=== PATIENT | female | born 1965 | race African-American/Black ===

== ENCOUNTER 2019-12-26 18:23 | Emergency (ER) | payer OTHER, SELFPAY ==
--- NOTE | ~2019-12-26 | XR_ITS ---
EXAMINATION: XR chest 2V EXAM DATE: 12/26/2019 19:38 INDICATION: Cough, headache for one week. Midsternal chest pain for 2 days. History high blood pressu re. TECHNIQUE: Frontal and lateral projections of the chest obtained and reviewed. There is no prior farrah dy for comparison. FINDINGS: The lungs are clear. There are no pleural effusions. The cardiomediastinal silhouette is within normal limits. There is no pneumothorax suspected. The bones and soft tissues are unremarkab le. IMPRESSION: No acute cardiopulmonary findings. Reviewed, dictated and finalized at location A.
[2019-12-26 18:28] VITALS: BP 151/100; PULSE 100; RESP 18; TEMP 36.8; O2SAT 100
[2019-12-26 18:34] VITALS: O2SAT 100
--- NOTE | 2019-12-26 18:59 | ECG_ITS ---
Measurements Intervals [place] Rate: 81 P: 32 OR: 155 QRS: 17 QRSD: 106 T: 42 QT: 392 QTc: 456 Interpretive Statements SINUS RHYTHM BORDERLINE T WAVE ABNORMALITY- ANTERIOR LEADS BASELINE ARTIFACT- I, III, AVL, AVF BORDERLINE ECG Electronically Signed On 12-27-2019 7:13:36 CDT by Kasi Pemberton D.O.
--- NOTE | 2019-12-26 19:00 | ED.URI ---
HPI - URI/Sore Throat General Chief Complaint: Upper Respiratory Infection Stated Complaint: DAVIS [id number] Time Seen by Provider: 12/26/19 18:41 Source: patient History of Present Illness HPI Narrative: Pt c/o cough, nasal congestion, fever x 2 days. Pt states her cough is productive, yellow green sputum. Pt also states that her chest hurts only when she coughs, been coughing alot . Denies sob, abd pain, n/v/d. Related Data Allergies Allergy/AdvReac Type Severity Reaction Status Date / Time No Known Allergies Allergy Verified 12/26/19 18:35 Review of Systems Review of Systems: All systems reviewed & are unremarkable except as noted in HPI and below Constitutional: Constitutional: Denies body ache(s), Denies chills, Denies excessive sweating, Denies fatigue, Denies headache(s), Denies lethargy, Denies malaise, Denies weakness and Denies weight loss Eyes: Eyes: Denies blurry vision, Denies change in vision and Denies loss of vision ENT: Denies dizziness, Denies ear discharge, Denies headache(s), Denies lip swelling, Denies epistaxis, Denies neck pain, Denies throat swelling and Denies tongue swelling Cardiovascular: Cardiovascular: Denies chest pain, Denies chest pain at rest, Denies chest pain with activity, Denies diaphoresis, Denies rapid heart rate, Denies edema, Denies irregular heart rhythm, Denies lightheadedness, Denies palpitations, Denies dyspnea and Denies dyspnea on exertion Respiratory: Respiratory: Denies chest congestion, Denies hemoptysis, Denies dyspnea and Denies dyspnea on exertion Gastrointestinal: Gastrointestinal: Denies abdominal pain, Denies melena, Denies hematochezia, Denies diarrhea, Denies nausea, Denies vomiting and Denies hematemesis Musculoskeletal: Musculoskeletal: Denies abnormal gait, Denies deformity, Denies joint swelling, Denies limited range of motion, Denies neck pain and Denies numbness Neurologic: Denies Abnormal speech present, Denies abnormal gait, Denies confusion, Denies dizziness, Denies headache(s), Denies focal weakness, Denies loss of vision, Denies numbness, Denies Other visual disturbances, Denies Sensory deficit (Neuro) and Denies weakness Psychiatric: Psychiatric: Denies confusion, Denies depression, Denies auditory hallucinations, Denies homicidal ideation and Denies suicidal ideation Endocrine: Endocrine: Denies cold intolerance, Denies excessive sweating, Denies fatigue, Denies heat intolerance and Denies palpitations Hematologic/Lymphatic: Hematologic/Lymphatic: Denies easy bleeding and Denies easy bruising Allergic/Immunologic: Allergic/Immunologic: Denies lip swelling, Denies throat swelling and Denies tongue swelling [facility] Social History Social History Gender identity (if verbalized by the patient): Female Exam Const: General: cooperative, healthy appearing, comfortable, no acute distress, well developed, alert and awake; No confusion Orientation/consciousness: oriented to person, oriented to place, oriented to time, patient oriented x3 and No confusion Limitations: no limitations HENMT: Head: normal to inspection, normocephalic and atraumatic Ears: hearing grossly normal bilaterally, TM normal on the right and TM normal on the left General nose exam: Normal external nose present, Normal nares present and No nasal discharge present Face and sinus: normal facial exam Mouth: Yes Normal oral and palatal mucosa present, Yes lip normal, Yes tongue normal and Yes oropharynx normal Throat: posterior oropharynx normal, tonsils normal and uvula midline Eyes: General: appearance normal, both eyes and all related structures Pupils: Equal, round and reactive pupils present EOM: EOMs intact bilaterally Neck: Neck: normal visual inspection, full ROM, no lymphadenopathy and no meningeal signs Chest: Chest palpation & inspection: normal inspection of the chest Resp: Effort & Inspection: normal respiratory effort, able to speak in complete sentences, no respiratory distress and n
[2019-12-26 19:15] LABS: Hematocrit 41.2 % (37.0-47.0); Hemoglobin 14.1 g/dL (12.0-15.0); Mean Corpuscular HGB Conc 34.2 g/dl (32-36); Mean Corpuscular Hemoglobin 28.8 pg (26-34); Mean Corpuscular Volume 84.3 fl (80-100); Platelet Count Result 314 k/mm3 (150-375); Red Blood Count 4.89 M/mm3 (4.2-5.4); Red Cell Distribution Width 13.2 % (11.5-14.5); White Blood Count 14.1 K/mm3 (4.5-10.0)
[2019-12-26 19:28] LABS: Blood Urea Nitrogen 7 mg/dL (7-17); Calcium 10.1 mg/dL (8.4-10.2); Carbon Dioxide 29 mmol/L (22-30); Chloride 99 mmol/L (98-107); Estimated CRCL calculation 88 ml/min; Estimated Glomerular Filt Rate > 60; Glucose 122 mg/dL (65-105); Potassium 3.7 mmol/L (3.4-5.0); Sodium 136 mmol/L (137-145)
[2019-12-26 19:29] LABS: Eosinophils Absolute Manual 0.14 K/mm3 (0.02-0.5); Eosinophils Percent Manual 1 % (0-4); Lymphocytes Absolute Manual 5.21 K/mm3 (1.1-4.5); Lymphocytes Percent Manual 37 % (18-44); Monocytes Absolute Manual 0.56 K/mm3 (0.1-0.90); Monocytes Percent Manual 4 % (3-9); Neutrophils Percent Manual 58 % (46-73); Ovalocytes 1+ (NORMAL); Platelet Estimate Adequate (Adequate); Total Cells Counted 100
[2019-12-26 19:30] LABS: Atypical Lymphocytes Present
[2019-12-26 19:40] LABS: Troponin I < 0.012 ng/mL (0.000-0.034)
[2019-12-26 20:20] VITALS: BP 138/92; PULSE 89; RESP 18; O2SAT 100
== END 2019-12-26 20:24 | disposition home or self-care (01) ==
PROVIDERS: Emergency Provider Emergency Medicine; PCP Internal Medicine Infectious Disease
DX: J20.9 Acute bronchitis, unspecified (principal); F17.210 Nicotine dependence, cigarettes, uncomplicated; R94.31 Abnormal electrocardiogram [ECG] [EKG]
CPT/HCPCS: 36415; 71046; 80048; 84484; 85025; 93005; 99284

== ENCOUNTER 2020-05-27 16:42 | Emergency (ER) | payer OTHER, SELFPAY ==
[2020-05-27 17:00] VITALS: BP 167/94; PULSE 98; RESP 16; TEMP 36; O2SAT 98
[2020-05-27 17:16] LABS: Basophils Percent Auto 0.3 % (0.2-1.2); Eosinophils Absolute Auto 0.1 K/mm3 (0-0.3); Eosinophils Percent Auto 1.6 % (0-4.4); Hematocrit 38.9 % (37.0-47.0); Hemoglobin 13.3 g/dL (12.0-15.0); Immature Granulocyte Absolute 0.03 K/mm3 (0.00-0.031); Immature Granulocyte Percent A 0.3 % (0-0.5); Lymphocytes Absolute Auto 3.65 K/mm3 (0.9-3.2); Mean Corpuscular HGB Conc 34.2 g/dl (32-36); Mean Corpuscular Volume 84.9 fl (80-100); Mean Platelet Volume 9.4 fl (7.4-10.4); Monocytes Absolute Auto 0.8 K/mm3 (0.1-0.6); Monocytes Percent Auto 8.9 % (2.6-8.5); Neutrophils Absolute Auto 4.3 K/mm3 (1.3-6.7); Neutrophils Percent Auto 47.9 % (45.5-73.1); Platelet Count Result 338 k/mm3 (150-375); Red Blood Count 4.58 M/mm3 (4.2-5.4); White Blood Count 8.9 K/mm3 (4.5-10.0)
[2020-05-27 17:24] LABS: Alanine Aminotransferase 27 U/L (4-35); Albumin Level 4.7 g/dL (3.5-5.1); Alkaline Phosphatase 74 U/L (38-126); Anion Gap 12 mmol/L (8-16); Aspartate Amino Transferase 27 U/L (14-36); Bilirubin,Total < 0.1 mg/dL (0.2-1.3); Blood Urea Nitrogen 9 mg/dL (7-17); Calcium 9.7 mg/dL (8.4-10.2); Carbon Dioxide 30 mmol/L (22-30); Chloride 101 mmol/L (98-107); Estimated CRCL calculation 77 ml/min; Estimated Glomerular Filt Rate > 60; Glucose 153 mg/dL (65-105); Lipase 496 U/L (23-300); Potassium 3.1 mmol/L (3.4-5.0); Sodium 143 mmol/L (137-145)
[2020-05-27 17:37] LABS: Add Urine Microscopic? YES; Appearance Urine Clear (Clear); Bacteria Urine Trace /hpf; Bilirubin Urine Negative (Negative); Color Urine Amber (Yellow); Glucose Urine UA Negative (Negative); Ketones Urine Trace mg/dL (Negative); Leukocyte Esterase Ur 2+ LEU/UL (Negative); Mucus Urine Heavy /lpf; Nitrate Urine Negative (Negative); Protein Urine 1+ mg/dL (Negative); RBC Urine 21-50 /hpf (0-2); Squamous Epithelial Cell Urine Few /hpf (Few); Uric Acid Crystals Urine Present /hpf
[2020-05-27 17:41] LABS: Blood Urine Negative (Negative)
--- NOTE | 2020-05-27 19:19 | PC.NURSE ---
Pt not in lobby when called. Left without being seen.
== END 2020-05-27 19:19 | disposition left against medical advice (07) ==
PROVIDERS: Emergency Provider Emergency Medicine; PCP Internal Medicine Infectious Disease
DX: R10.9 Unspecified abdominal pain (principal)
CPT/HCPCS: 36415; 80053; 81001; 81025; 83690; 85025; 87086; 99199

== ENCOUNTER 2022-11-15 08:52 | Outpatient (CLI) | payer MEDICARE, MEDICAID, SELFPAY ==
--- NOTE | 2022-11-15 09:23 | ECG_ITS ---
Measurements Intervals [place] Rate: 63 P: -7 NM: 164 QRS: 10 QRSD: 99 T: 39 QT: 433 QTc: 446 Interpretive Statements SINUS RHYTHM DELAYED PRECORDIAL R/S TRANSITION BORDERLINE T WAVE ABNORMALITY- ANTERIOR LEADS BASELINE ARTIFACT- I, II, III, AVR, AVL, V2-V4 BORDERLINE ECG COMPARED TO ECG 12/26/2019 19:10:09 NO SIGNIFICANT CHANGES Electronically Signed On 11-15-2022 9:49:52 CDT by Kasi Pemberton D.O.
[2022-11-15 10:05] LABS: Anion Gap 5 mmol/L (8-16); Blood Urea Nitrogen 13 mg/dL (7-17); Calcium 9.6 mg/dL (8.4-10.2); Carbon Dioxide 31 mmol/L (22-30); Chloride 102 mmol/L (98-107); Estimated Glomerular Filt Rate > 60; Glucose 95 mg/dL (65-110); Potassium 3.6 mmol/L (3.4-5.0); Sodium 138 mmol/L (137-145)
[2022-11-15 10:06] LABS: Prothrombin Time 12.8 Seconds (11.1-14.7)
[2022-11-15 10:07] LABS: Partial Thromboplastin Time 31.2 SECONDS (22.3-36.8)
== END 2022-11-15 08:53 | disposition home or self-care (01) ==
LOC: ANHSURGERY 09:00
PROVIDERS: Anesthesiology; Visit Provider Urology
DX: N20.0 Calculus of kidney (principal); E11.9 Type 2 diabetes mellitus without complications; Z01.818 Encounter for other preprocedural examination; R94.31 Abnormal electrocardiogram [ECG] [EKG]
CPT/HCPCS: 36415; 80048; 85610; 85730; 87086; 93005

== ENCOUNTER 2022-11-19 01:11 | Day surgery (SDC) | payer MEDICARE, MEDICAID, SELFPAY ==
[2022-11-12 11:45] VITALS: BMI 31.2
--- NOTE | 2022-11-12 11:50 | PC.NURSE ---
Report to the Outpatient Waiting Room, entrance under the green pavilion located off [facility], at time 9:30 on date 11/19/22. Planned Procedure Time: 11:30. Time changes happen often and if your time is changed the preop area will call you the afternoon before. - You and your visitor will be asked to self-screen and do not enter if you have any COVID symptoms. - Only one visitor is requested with a max of two and NO children visitors are allowed at this time. - The patient visitor may be requested to leave or wait in car when not with patient due to distancing restrictions. - A mask is optional within the hospital at this time. Patients may have clear liquids (water, carbonated beverages, clear teas, apple juice) until 3 hours prior to surgery (8:30) with a maximum of 20 ounces. - No food from midnight until time of surgery Take the following medications with a SIP of water the morning of surgery: VALACYCLOVIR, PROPRANOLOL, GABAPENTIN, LATUDA DO NOT STOP ANY OF YOUR OTHER PRESCRIPTION MEDICATIONS PRIOR TO SURGERY EXCEPT THE FOLLOWING Medications to discontinue per physician: VITAMINS/SUPPLEMENTS Date to take last dose: 11/15/22 Please no make-up, nail romansh, hairspray, perfume, deodorant, or body powder the day of surgery. No jewelry (including any body piercings) or valuables the day of surgery, leave them at home. Please take a shower or bath the night before, or the morning of, surgery with an antibacterial soap. Wear comfortable, loose fitting clothing. - Jewelry must be removed prior to entering the operating room. Rings and piercings that are not removed may be cut off. - The hospital will not accept responsibility for valuables. - Please leave all valuables, including medications, at home the day of surgery. If you are going home after surgery, a licensed sales route driver helper must drive you home. - NO public transportation without another adult if you receive anesthesia. - We recommend that an adult stay with you for 24 hours following discharge. - We also recommend that you do not drive, make important decision, drink alcoholic beverages, or take any drugs that were not prescribed by your health care provider for at least 24 hours after your discharge time. Follow any additional instructions given to you from your surgeon. If you or anyone in your household have experienced Covid symptoms in the past week, please notify your surgeon or the nurse liaison at the phone number below for possible testing. Telephone instructions given to MELISSA HASSAN and asked if any additional questions and then verbalized understanding. Patient advised to call surgeon office or pre surgery nurse liaison [phone] if any additional questions.
[2022-11-19] VITALS (9 sets, daily range): BP systolic 104–156; BP diastolic 67–93; PULSE 59–93; RESP 12–20; TEMP 36.1–36.2; O2SAT 92–99
--- NOTE | ~2022-11-19 | XR_ITS ---
EXAMINATION: XR abdomen/kub 1V INDICATION: Nephrolithiasis TECHNIQUE: Supine views of the abdomen were obtained on 2 radiographs. COMPARISON: None FINDINGS: There is a 7 mm stone of the right kidney lower pole. There are phleboliths of the pelvis. No stones are identified in the ureters or bladder. The bowel gas pattern is normal. IMPRESSION: 1. Right nephrolithiasis. Reviewed, dictated and finalized at location B. IMPRESSION: 1. Right nephrolithiasis.
--- NOTE | 2022-11-19 06:33 | WPDHPUPDATE1 ---
History and Physical Update Update Date/Time: 11/19/22 06:33 History and Physical has been reviewed, including an updated exam of the patient. There are NO changes in the patient's condition. Risks, benefits, and alternatives have been discussed and questions answered. Patient agrees to proceed with procedure.
[2022-11-19 09:35] LABS: Glucose Point of Care 90 mg/dl (65-105)
--- NOTE | 2022-11-19 10:13 | WPDANESEPPF ---
Anes - Initial Pre Proc Eval Procedure: Operation Date: 11/19/22 10:30 Proposed Procedures p Right Extracorporeal Shock Wave Lithotripsy - Vince Kee MD Date/Time: 11/19/22 10:13 Surgeon: Vince Kee MD Pre Op Diagnosis: right renal stones Patient Data Age: 56 Gender: F Height: 1.63 m Weight: 86.6 kg Last Vital Signs Temp 36.1 C L 11/19/22 10:03 Pulse 64 11/19/22 10:03 Resp 16 11/19/22 10:03 BP 140/80 11/19/22 10:03 Pulse Ox 93 11/19/22 10:03 O2 Del Method Room Air 11/19/22 10:03 Allergies Allergy/AdvReac Type Severity Reaction Status Date / Time No Known Allergies Allergy Verified 11/19/22 09:56 Home Medications Medication Instructions Recorded Confirmed Type atorvastatin 40 mg tablet 40 mg PO DAILY 11/12/22 11/12/22 History gabapentin 100 mg capsule 100 mg PO DAILY 11/12/22 11/12/22 History hydrochlorothiazide 25 mg tablet 25 mg PO DAILY 11/12/22 11/12/22 History lurasidone 20 mg tablet (Latuda) 20 mg PO DAILY 11/12/22 11/12/22 History metformin 500 mg tablet 500 mg PO BID 11/12/22 11/12/22 History potassium chloride 20 mEq 20 meq PO DAILY 11/12/22 11/12/22 History tablet,extended release propranolol 10 mg tablet 10 mg PO DAILY 11/12/22 11/19/22 History valacyclovir 500 mg tablet 500 mg PO DAILY 11/12/22 11/19/22 History Laboratory Tests 11/19/22 09:24 POC Capillary Glucose 90 mg/dl mg/dl (65-105) Patient hx anesthesia problems: none Family hx anesthesia problems: none Results Review: All pre-operative results and documents have been reviewed as part of the pre-operative evaluation. [facility] Social History Social History Smoking packs per day: 0.5 Smoking cigarettes per day: 10.0 Years smoked: 40 Smoking pack-years: 20.00 Smoking status: Current every day smoker Tobacco type: cigarettes Alcohol intake: never Substance use: former Substance use type: marijuana Living arrangements: alone Gender identity (if verbalized by the patient): Female Spiritual care concerns: No Anes - Eval Final PreProcedure Day of Procedure 11/19/22 10:13 Patient weight: obese Heart: regular rate and rhythm Lungs: decreased breath sounds Airway: Mallampati scale class II Neurological: alert and oriented Last oral intake: >/= 8 hours ASA classification: III Emergent: no Anesthetic plan: proceed Anesthesia type and monitoring: general LMA and standard monitoring Results Review: All pre-operative results and documents have been reviewed as part of the pre-operative evaluation. Informed Consent: The patient's anesthetic plan and its attendant risks and benefits were discussed with the patient/family/POA. Questions were solicited and answers provided to the satisfaction of the patient/family/POA.
[2022-11-19] MEDS: ceFAZolin 2 GM/D5W 50 ML 2 GM/50 ML BAG IVPB (10:31)
[2022-11-19] MEDS: LIDOCAINE HCL 2% GEL UROJET 10 ML PKG MUCOUS MEM (10:49)
--- NOTE | 2022-11-19 11:12 | W.PM.PROC2 ---
Procedure Note - Detailed Date of Procedure 11/19/22 Pre-op Diagnosis Right renal stones Post-op Diagnosis Same Procedure Performed Right ureteroscopy with retrograde pyelography, right ESWL Surgeon Vince Kee MD Anesthesia General Description of Procedure this patient is outpatient CT scan that shows a 13 x 5 mm right renal calculus. On KUB imaging the morning of ESWL there was a similar dimension calcification overlying the right kidney. Under fluoroscopy, however, we could not identify her right renal stone. I performed right ureteroscopy with a 7.5 F flexible ureteral scope. With that scope her bladder. Endoscopically normal. I was then able to identify the right ureteral orifice and pass a 0.035 glidewire into the right renal pelvis. Right ureteroscopy was undertaken with a 7.5 F flexible ureteral scope. I identified the stone in a right mid pole calyx. We performed retrograde pyelography to a outlined a filling defect. We then delivered 2500 shocks at a power setting 4. Estimated Blood Loss 0 Pathology None sent Complications No immediate complications Condition Stable Disposition PACU
[2022-11-19] MEDS: LACTATED RINGERS 1,000 ML 30 ML IV CONT ×2 (11:37)
[2022-11-19] MEDS: fentaNYL CITRATE INJ (*CRX) 100 MCG/2 ML VIAL 25 MCG IV PUSH ×2 (12:04→12:09)
[2022-11-19] MEDS: oxyCODONE HCL (*CRX) 5 MG TAB IR PO ×2 (13:15→13:16)
--- NOTE | 2022-11-22 15:47 | P.HP_ITS ---
History of Present Illness History of Present Illness Consent: Risks, benefits, and alternatives have been discussed and questions answered. Patient agrees to proceed with procedure. Chief complaint: right renal stones Narrative: Brianne Pires is a 56 year old female without history of urolithiasis who presented to the emergency room [facility]. Imaging demonstrated a 13 x 5 mm right renal pelvic calculus. After discussion of options including ESWL and ureteroscopy with laser lithotripsy she has elected for the former. She is aware the risk including, but not limited to, adverse cardiopulmonary events hematuria and perinephric hematoma. [facility] Social History Social History Smoking packs per day: 0.5 Smoking cigarettes per day: 10.0 Years smoked: 40 Smoking pack-years: 20.00 Smoking status: Current every day smoker Tobacco type: cigarettes Alcohol intake: never Substance use: former Substance use type: marijuana Living arrangements: alone Gender identity (if verbalized by the patient): Female Spiritual care concerns: No Meds Home Medications and Allergies Home Medications Medication Instructions Recorded Confirmed Type atorvastatin 40 mg tablet 40 mg PO DAILY 11/12/22 11/12/22 History gabapentin 100 mg capsule 100 mg PO DAILY 11/12/22 11/12/22 History hydrochlorothiazide 25 mg tablet 25 mg PO DAILY 11/12/22 11/12/22 History lurasidone 20 mg tablet (Latuda) 20 mg PO DAILY 11/12/22 11/12/22 History metformin 500 mg tablet 500 mg PO BID 11/12/22 11/12/22 History potassium chloride 20 mEq 20 meq PO DAILY 11/12/22 11/12/22 History tablet,extended release propranolol 10 mg tablet 10 mg PO DAILY 11/12/22 11/19/22 History valacyclovir 500 mg tablet 500 mg PO DAILY 11/12/22 11/19/22 History cephalexin 500 mg capsule 500 mg PO Q8H #9 caps 11/19/22 Rx hydrocodone 5 mg-acetaminophen 325 1 - 2 tablet PO Q6H PRN pain #20 11/19/22 Rx mg tablet tabs Allergies Allergy/AdvReac Type Severity Reaction Status Date / Time No Known Allergies Allergy Verified 11/19/22 09:56 Assessment and Plan Assessment and plan (1) Right renal stone: Code(s): N20.0 - Calculus of kidney Status: Acute Assessment and Plan: * Right ESWL
== END 2022-11-19 13:45 | disposition home or self-care (01) ==
PROVIDERS: Visit Provider Urology
PROC: (CPT 50590; principal; 2022-11-19 10:30)
DX: N20.0 Calculus of kidney (principal); Z79.84 Long term (current) use of oral hypoglycemic drugs; F17.210 Nicotine dependence, cigarettes, uncomplicated; E66.9 Obesity, unspecified; Z68.32 Body mass index [BMI] 32.0-32.9, adult
CPT/HCPCS: 50590; 74018; 82948; A9270; J0690; J1100; J2250; J2405; J2704; J3010; J7030; J7120; Q9966

== ENCOUNTER 2022-12-01 08:30 | Outpatient (CLI) | payer MEDICARE, SELFPAY ==
--- NOTE | ~2022-12-01 | XR_ITS ---
EXAMINATION: XR abdomen/kub 1V INDICATION: Right-sided kidney TECHNIQUE: Supine views of the abdomen were obtained on 2 radiographs. COMPARISON: 11/19/2022 FINDINGS: The previously described 7 mm stone of the right kidney is no longer evident, consistent wi th interval lithotripsy. No definite stone fragments are identified in the kidney, along the expected course of the ureter, or urinary bladder. There are multiple phleboliths of the pelvis. 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 The bowel gas pattern is normal. IMPRESSION: 1. Findings consistent with interval lithotripsy of a right-sided kidney stone without residual uroli thiasis identified. Reviewed, dictated and finalized at location B. IMPRESSION: 1. Findings consistent with interval lithotripsy of a right-sided kidney stone without residual urolithiasis identified.
== END 2022-12-01 08:31 | disposition home or self-care (01) ==
LOC: ANHIMG 08:36
PROVIDERS: Visit Provider Urology
DX: N20.0 Calculus of kidney (principal)
CPT/HCPCS: 74018